=== PATIENT | male | born 1960 | race Caucasian/White ===

== ENCOUNTER 2023-05-29 09:22 | Day surgery (SDC) | payer OTHER ==
[2023-05-21 16:55] VITALS: BMI 25.5
[2023-05-29 09:45] VITALS: RESP 18
[2023-05-29] MEDS ORDERED: PROPOFOL 40 ML ONE (10:19)
[2023-05-29] MEDS ORDERED: LIDOCAINE HCL/PF 2% SDV 5ML VIAL ONE (10:19)
[2023-05-29 10:52] VITALS: TEMP 97.8
[2023-05-29 11:30] VITALS: BP 110/60; PULSE 78
== END 2023-05-29 11:20 | disposition home or self-care (01) ==
LOC: FASU-ENDO 09:22
PROVIDERS: ATTEND Internal Medicine Gastroenterology
PROC: 0DBN8ZX Excision of Sigmoid Colon, Via Natural or Artificial Opening Endoscopic, Diagnostic (ICD-10-PCS; principal; 2023-05-29 10:28)
DX: Z12.11 Encounter for screening for malignant neoplasm of colon (principal); K63.5 Polyp of colon; K64.1 Second degree hemorrhoids; K57.30 Diverticulosis of large intestine without perforation or abscess without bleeding
CPT/HCPCS: 82962